=== PATIENT | female | born 1980 | race Hispanic/Latino ===

== ENCOUNTER 2025-07-09 06:59 | Day surgery (SDC) | payer OTHER ==
[2025-07-09] VITALS (11 sets, daily range): BP systolic 100–135; BP diastolic 57–84; PULSE 64–86; RESP 15–17; TEMP 97.5–97.9
[~2025-07-09] VITALS: Ht 167.6 cm; Wt 103.0 kg
[~2025-07-09 06:59] MED LIST: HYDR12.54 PO; TELM40TA8 PO; [UNRECOGNIZED DRUG - CODE] PO
[2025-07-09] MEDS: 0.9%NACL 1000ML 1,000 ML IV ONE (07:41)
[2025-07-09] MEDS ORDERED: SIMETHICONE 40 MG/0.6 ML ML ONE (10:06)
== END 2025-07-09 11:22 | disposition home or self-care (01) ==
LOC: ENDO 06:59 → DAH 06:59 → ENDO 11:22
PROVIDERS: ATTEND Internal Medicine
DX: Z12.11 Encounter for screening for malignant neoplasm of colon (principal); D12.0 Benign neoplasm of cecum; D12.8 Benign neoplasm of rectum; K64.0 First degree hemorrhoids; K64.4 Residual hemorrhoidal skin tags; I10 Essential (primary) hypertension; E66.9 Obesity, unspecified; Z88.0 Allergy status to penicillin; Z68.41 Body mass index [BMI] 40.0-44.9, adult; Z79.84 Long term (current) use of oral hypoglycemic drugs; Z79.899 Other long term (current) drug therapy
CPT/HCPCS: 45385; 45380; 82948 ×2; J7030; J2704; A4620; A4215; J3490